=== PATIENT | female | born 1985 | race Caucasian/White ===

== ENCOUNTER 2016-07-24 06:00 | Inpatient (IN) | payer BC ==
[~2016-07-24] VITALS: Ht 167.6 cm; Wt 72.6 kg
[2016-07-24 06:11] VITALS: BP 121/65
--- NOTE | 2016-07-24 06:22 | NUR ---
PT TAKEN TO OF
--- NOTE | 2016-07-24 06:27 | NUR ---
PT BIB FAMILY C/O LOWER ABD PAIN, STARTED LASTNIGHT AROUND 18:00 WITH VOMITING AND DIARRHEA. PT DENIES ANY TRAUMA. SKIN IS INTACT, PALE/COOL/DRY; AAOX4, PERRL, WITH EVEN AND UNSTEADY GAIT-PT NOTED TO HAVE A BENT OVER GAIT S/P SEVERE LOWER ABD PAIN; LUNGS CLEAR BL, BREATHING UNLABORED; HR EVEN AND REGULAR, BL PERIPHERAL PULSES PRESENT; BS ACTIVE X4, TENDERNESS ON PALPATION TO LOW ABD. PT DENIES ANY FEVER, CP, SOB, OR COUGH AT THIS TIME; PT STATES 10/10 PAIN AT THIS TIME; VSS; PATIENT POSITIONED FOR COMFORT; HOB ELEVATED; BEDRAILS UP X2; BED DOWN. ER MD TO CHECO, ALL ORDER EXECUTED
--- NOTE | 2016-07-24 06:28 | NUR ---
Dr. Solis evaluating patient
[2016-07-24] MEDS ORDERED: MORPHINE SULFATE 4 MG/ML SYR IVP ONE ×2 (06:30→08:20)
[2016-07-24] MEDS ORDERED: NACL 0.9% 1,000 ML IV ONE (06:30)
[2016-07-24] MEDS ORDERED: LEVOFLOXACIN 500 MG/D5W PREMIX 100 ML IV ONE (06:30)
[2016-07-24] MEDS ORDERED: ONDANSETRON 4 MG/2 ML VIAL IVP ONE (06:30)
--- NOTE | 2016-07-24 06:40 | NUR ---
PT MOVED TO BED 3
[2016-07-24 06:43] LABS: BASOPHILS # (AUTO) 0.4 K/uL (0.00-0.22); BASOPHILS % (AUTO) 2.2 % (0.0-2.0); EOSINOPHILS # (AUTO) 0.4 K/uL (0-0.4); EOSINOPHILS % (AUTO) 2.3 % (0.0-4.0); HEMATOCRIT 39.3 % (36-48); HEMOGLOBIN 13.2 g/dL (12.0-16.0); LYMPHOCYTES # (AUTO) 1.3 K/uL (2.5-16.5); LYMPHOCYTES % (AUTO) 7.8 % (20.5-51.1); MEAN CORPUSCULAR HEMOGLOBIN 30 pg (27-31); MEAN CORPUSCULAR HGB CONC 34 g/dL (33-37); MEAN CORPUSCULAR VOLUME 88 fL (80-94); MONOCYTES # (AUTO) 0.2 K/uL (0.8-1.0); MONOCYTES % (AUTO) 0.9 % (1.7-9.3); NEUTROPHILS % (AUTO) 86.8 % (42.2-75.2); PLATELET COUNT (AUTO) 264 K/uL (140-450); RED BLOOD CELL COUNT(AUTO) 4.45 MIL/uL (4.20-5.40); RED CELL DISTRIBUTION WIDTH 12.7 % (11.6-13.7)
--- NOTE | 2016-07-24 06:58 | NUR ---
Dr. May evaluating patient at bedside.
[2016-07-24 07:02] LABS: WHITE BLOOD COUNT (AUTO) 17.3 K/uL (4.8-10.8)
--- NOTE | 2016-07-24 07:08 | NUR ---
PT TAKEN TO CT
[2016-07-24 07:12] LABS: ANION GAP 16.3 (8-16); CARBON DIOXIDE 24.5 mmol/L (21-32); POTASSIUM 3.8 mmol/L (3.5-5.1)
[2016-07-24 07:13] LABS: CALCIUM 9.1 mg/dL (8.5-10.1); CREATININE 0.8 mg/dL (0.6-1.3)
[2016-07-24 07:14] LABS: TOTAL PROTEIN, SERUM 8.1 g/dL (6.4-8.2)
--- NOTE | 2016-07-24 07:15 | NUR ---
REPORT GIVEN TO CHRISTOPHER BATES. PT. RESTING IN BED, NO S/SX DISTRESS AT THIS TIME.
[2016-07-24 07:44] LABS: TOTAL BILIRUBIN 0.5 mg/dL (0.0-1.0)
[2016-07-24 07:48] LABS: APPEARANCE,URINE HAZY (CLEAR); BILIRUBIN,URINE NEGATIVE (NEGATIVE); BLOOD, URINE TRACE-I (NEGATIVE); COLOR,URINE YELLOW (YELLOW); LEUKOCYTE ESTERASE ,URINE NEGATIVE (NEGATIVE); NITRITE, URINE NEGATIVE (NEGATIVE); PH,URINE 7.5 (5.0-9.0); PROTEIN,URINE TRACE (NEGATIVE); UGLUCOSE NEGATIVE (NEGATIVE); UROBILINOGEN,URINE 0.2 EU/dL (0.2 - 1)
[2016-07-24 07:56] LABS: WBC,URINE 0-5 /HPF (0-5)
[2016-07-24 07:57] LABS: BACTERIA,URINE FEW /HPF (None Seen); MUCUS,URINE 1+ /LPF (None Seen)
--- NOTE | 2016-07-24 09:05 | NUR ---
RECEIVED REPORT FROM THE ER NURSE. WILL GET ROOM READY AND WILL AWAIT ARRIVAL.
--- NOTE | 2016-07-24 09:10 | NUR ---
Patient will be admitted to care of DR LAM. Admited to TELE. Will go to room 120A. Belongings list completed. Report to CHRISTOPHER BHATT .
--- NOTE | 2016-07-24 09:25 | NUR ---
PT ARRIVED ON UNIT WITH 2 ER NURSES. PT IS ACCOMPANIED BY HER DAUGHTER. PT IS A 29 Y/O WOMEN, C/O ABD PAIN, NAUSEA, VOMITING, DIARRHEA SINCE YESTERDAY. NO MORE NAUSEA, VOMITING, AND DIARRHEA BUT ABD PAIN IS STILL AT 5/10. SKIN IS INTACT. IV ON R AC 18G. PT IS ALERT AND ORIENTED, SPEAKS BENGALI AND UNDERSTANDS LITTLE OF AMERICAN. PT IS AMBULATORY. LBM LAST NIGHT, DIARRHEA. IN ER, CT IS NEGATIVE. V/S WITHIN NORMAL RANGE. MRSA SCREENING DONE. APPLIED BROWN SOCKS. AWAITING ORDERS. PT RESTING IN BED. WITH DAUGHTER AT BEDSIDE. WILL CONTINUE TO MONITOR PT.
[2016-07-24] MEDS ORDERED: ONDANSETRON 4 MG/2 ML VIAL IM/IVP PRN ×2 (09:50→10:25)
[2016-07-24] MEDS ORDERED: DOCUSATE SODIUM 100 MG GELCAP PO PRN ×2 (09:50→10:25)
[2016-07-24] MEDS ORDERED: HYDROcodone/APAP 7.5/325 MG 1 TAB PO PRN (09:50)
[2016-07-24] MEDS ORDERED: NACL 0.9% 1,000 ML IV SCH (09:50)
[2016-07-24] MEDS ORDERED: MORPHINE SULFATE 2 MG/ML SYR IVP PRN (09:50)
[2016-07-24] MEDS ORDERED: ACETAMINOPHEN 325 MG TAB PO PRN (09:50)
[2016-07-24 10:00] VITALS: BP 122/78
[2016-07-24 10:17] LABS: PARTIAL THROMBOPLASTIN TIME 25.8 secs (22-35.6); PROTHROMBIN TIME 9.8 secs (10.8-13.4)
[2016-07-24 10:31] LABS: CHOL/HDL RATIO 2.3 (1-4.5); MAGNESIUM 1.8 mg/dL (1.8-2.4); PHOSPHORUS 2.1 mg/dL (2.5-4.9); THYROID STIMULATING HORMONE 0.7 uIU/mL (0.34-3.76)
[2016-07-24] MEDS: MORPHINE SULFATE 2 MG/ML SYR IVP PRN ×3 (10:56→21:55)
[2016-07-24] MEDS: NACL 0.9% 1,000 ML IV SCH ×2 (10:56→20:25)
--- NOTE | 2016-07-24 11:30 | NUR ---
SPOUSE CAME BY TO SEE PT. PT CLAIMS PAIN IS BETTER BUT NOT GONE. WILL SEE ABOUT ALTERNATING NORCO AND MORPHINE. WILL CONTINUE TO MONITOR PT.
[2016-07-24 12:00] VITALS: BP 129/74
[2016-07-24] MEDS: HYDROcodone/APAP 7.5/325 MG 1 TAB PO PRN ×2 (12:30→17:46)
--- NOTE | 2016-07-24 13:27 | NUR ---
THE WHOLE FAMILY IS SLEEPING. PT AND DAUGHTER IN BED AND SPOUSE IN THE CHAIR. NO SIGNS OF DISTRESS. WILL CONTINUE TO MONITOR PT.
--- NOTE | 2016-07-24 15:05 | NUR ---
ADMINISTERED PAIN MEDS REQUESTED. PAIN 8/10. PT TOLERATED WELL. WILL CONTINUE TO MONITOR PT.
[2016-07-24 16:00] VITALS: BP 110/62
[2016-07-24] MEDS: ACETAMINOPHEN 325 MG TAB PO PRN (16:17)
--- NOTE | 2016-07-24 16:18 | NUR ---
PT HAS A FEVER OF 100.7F TEMPORAL. HAD THE STUDENTS REDO THE TEMP. ORAL WAS 102.7F. ADMINISTERED TYLENOL AND STARTED COOLING MEASURES.
--- NOTE | 2016-07-24 17:49 | NUR ---
DR. CASTILLO CAME AND ASSESSED PT. ADMINISTERED PAIN MED. PT TOLERATED WELL. PER MD, PT HAS SOME SWELLING IN HER CERVIX. DR Kailyn BRONSON WAS CONSULTED.
--- NOTE | 2016-07-24 19:11 | NUR ---
ENDORSED PT TO THE ELECTRICAL APPRENTICE NURSE AT BEDSIDE FOR CONTINUITY OF CARE. PT IS IN STABLE CONDITION.
--- NOTE | 2016-07-24 19:12 | NUR ---
RECEIVED REPORT, ASSUMED CARE. PT AAOX4, RESTING COMFORTABLY IN BED WITH FAMILY AT BEDSIDE. RESPIRATION EVEN AND UNLABORED, NO SOB, NO S/S OF RESPIRATORY DISTRESS. DENIES PAIN AT THIS TIME. IV ACCESS TO RT AC, GAUGE 18, INTACT AND PATENT WITH NO S/S OF INFILTRATION. IVF NS @ 100ML/HR INFUSING WELL. DISCUSSED PLAN OF CARE, ON NPO PER ORDER. EDUCATED RE:SAFETY AND FALL PREVENTION. PT VERBALIZED UNDERSTANDING. CALL LIGHT KEPT WITHIN EASY REACH. WILL CONTINUE TO MONITOR.
[2016-07-24 19:42] LABS: LACTIC ACID 1.8 mmol/L (0.4-2.0)
[2016-07-24 20:00] VITALS: BP 119/66
[2016-07-25] VITALS: BP 104/57
[2016-07-25] MEDS: MORPHINE SULFATE 2 MG/ML SYR IVP PRN ×3 (00:58→12:36)
[2016-07-25] MEDS: HYDROcodone/APAP 7.5/325 MG 1 TAB PO PRN ×2 (02:52→11:44)
[2016-07-25 04:00] VITALS: BP 114/52
[2016-07-25] MEDS ORDERED: LEVOFLOXACIN 500 MG/D5W PREMIX 100 ML IV SCH ×2 (06:00→16:30)
[2016-07-25] MEDS: NACL 0.9% 1,000 ML IV SCH ×2 (06:04→16:22)
[2016-07-25 06:27] LABS: HEMATOCRIT 36.6 % (36-48); HEMOGLOBIN 12.5 g/dL (12.0-16.0); MEAN CORPUSCULAR HEMOGLOBIN 31 pg (27-31); MEAN CORPUSCULAR HGB CONC 34 g/dL (33-37); MEAN CORPUSCULAR VOLUME 91 fL (80-94); PLATELET COUNT (AUTO) 208 K/uL (140-450); RED BLOOD CELL COUNT(AUTO) 4.05 MIL/uL (4.20-5.40); RED CELL DISTRIBUTION WIDTH 12.9 % (11.6-13.7); WHITE BLOOD COUNT (AUTO) 23.1 K/uL (4.8-10.8)
--- NOTE | 2016-07-25 06:27 | NUR ---
PT SITTING UP IN BED, CRYING AND MOANING IN PAIN. PT C/O LOWER ABDOMINAL PAIN 10/15. ENCOURAGED POSITIONING IN BED. INSTRUCTED TO PERFORM DEEP BREATHING EXERCISES. INFORMED DR. BAUER AND DISCUSSED PT'S CONDITION. ORDERED TORADOL 30MG IVP Q6H PRN. NOTED AND CARRIED OUT.
[2016-07-25 06:35] LABS: ANION GAP 12.7 (8-16); CALCIUM 7.9 mg/dL (8.5-10.1); CARBON DIOXIDE 25.5 mmol/L (21-32); CREATININE 0.7 mg/dL (0.6-1.3); POTASSIUM 3.2 mmol/L (3.5-5.1)
[2016-07-25 06:46] LABS: MAGNESIUM 1.7 mg/dL (1.8-2.4); PHOSPHORUS 2.6 mg/dL (2.5-4.9)
--- NOTE | 2016-07-25 07:00 | NUR ---
PT'S BP 88/50 AT THIS TIME, PT STILL CRYING IN PAIN. DR. BRONSON IN AND SAW PATIENT'S CONDITION AND INFORMED THAT CELL STRIPPER FINAL IS UNABLE TO ADMINISTER TORADOL DUE TO LOW BP. STATES, "NO DON'T GIVE IT." ENDORSED TO NEXT SHIFT FOR CONTINUITY OF CARE.
--- NOTE | 2016-07-25 07:01 | NUR ---
PT AWAKE AND ALERT, NO SIGNS OF ACUTE DISTRESS. BOWEL SOUNDS ACTIVE IN ALL 4 QUADRANTS, NO ABDOMINAL DISTENTION. BOWEL AND BLADDER CONTINENCE. SKIN INTACT. AMBULATORY WITH BRP, IV PATENT AND ASYMPTOMATIC. BED IN LOW POSITION WITH BILATERAL HALF SIDE RAILS UP, CALL LIGHT WITHIN REACH. RE-ORIENTED PATIENT TO UNIT AND HOSPITAL, PT VERBALIZED UNDERSTANDING.
[2016-07-25 08:00] VITALS: BP 129/73
[2016-07-25] MEDS: KETOROLAC 30 MG/ML VIAL IVP PRN ×2 (08:06→16:52)
[2016-07-25] MEDS: SODIUM PHOS / POTASSIUM PHOS 1 PKT PDR PO SCH ×3 (08:06→16:51)
[2016-07-25 08:36] LABS: BAND % (MANUAL) 18 % (0-8); LYMPHOCYTES % (MANUAL) 7 % (20-46); MONOCYTES % (MANUAL) 3 % (5-12); NEUTROPHILS % (MANUAL) 72 (43-65)
[2016-07-25 09:35] LABS: T4 (THYROXINE) 9.8 ug/dL (4.5-12.0)
--- NOTE | 2016-07-25 10:00 | NUR ---
PT SEEN BY DR JAUREGUI, NEW ORDERS GIVEN, NOTED, WILL CARRY OUT.
[2016-07-25 12:00] VITALS: BP 117/62
[2016-07-25 12:31] LABS: HEMOGLOBIN A1C 5.6 % (4.8-5.6)
[2016-07-25] MEDS: metroNIDAZOLE 500 MG/NS PREMIX 100 ML IV SCH ×2 (12:36→22:59)
--- NOTE | 2016-07-25 13:40 | NUR ---
PT AWAKE AND ALERT, TAKEN TO RADIOLOGY FOR CT OF ABDOMEN AND PELVIS WITH ORAL AND IV CONTRAST.
--- NOTE | 2016-07-25 14:02 | NUR ---
PATIENT BACK FROM RADIOLOGY, AWAKE AND ALERT, NO SIGNS OF ACUTE DISTRESS. WILL CONTINUE TO MONITOR.
--- NOTE | 2016-07-25 15:18 | NUR ---
CM NOTE INITIAL REVIEW FAXED TO SUMAN MEEKS [phone]
--- NOTE | 2016-07-25 15:38 | NUR ---
RECEIVED CRITICAL CT ABD AND PELVIC RESULT FROM [facility]NER FREY AT [facility] AND REPORTED TO RESIDENT. PAGED DR JAUREGUI WELL.
--- NOTE | 2016-07-25 15:40 | NUR ---
PATIENT RHYTHM IS TACHYCARDIA IN 140'S, DR VALENZUELA AWARE.
[2016-07-25 16:00] VITALS: BP 98/61
--- NOTE | 2016-07-25 16:15 | NUR ---
RECEIVED ORDERS FOR EXPLORATORY LAPAROTOMY TO BE PERFORMED BY DR JAUREGUI TODAY AT 1730 AND TO OBTAIN CONSENT.
[2016-07-25] MEDS ORDERED: POTASSIUM CHLORIDE 40 MEQ, LIDOCAINE 1% 25 MG in NACL 0.9% 250 ML IV SCH (16:30)
[2016-07-25] MEDS ORDERED: MAG SULF 2000 MG/WATER PREMIX 50 ML IV SCH (16:30)
--- NOTE | 2016-07-25 17:24 | NUR ---
PATIENT AWAKE AND ALERT, TAKEN TO OR FOR EXPLORATORY LAPAROTOMY.
[2016-07-25] MEDS ORDERED: HYDROmorphone PFS 2 MG/ML SYR ONE ×2 (17:48→19:27)
[2016-07-25] MEDS ORDERED: fentaNYL 0.05 MG/ML VIAL ONE (17:48)
[2016-07-25] MEDS ORDERED: GLYCOPYRROLATE 0.2 MG/ML VIAL ONE (18:00)
[2016-07-25] MEDS ORDERED: PHENYLEPHRINE 10 MG/ML VIAL ONE (18:00)
[2016-07-25] MEDS ORDERED: PROPOFOL 200 MG/20 ML VIAL IV ONE (18:00)
[2016-07-25] MEDS ORDERED: KETOROLAC 30 MG/ML VIAL ONE (18:00)
[2016-07-25] MEDS ORDERED: ONDANSETRON 4 MG/2 ML VIAL ONE (18:00)
[2016-07-25] MEDS ORDERED: DEXAMETHASONE 4 MG/ML VIAL ONE (18:00)
[2016-07-25] MEDS ORDERED: SUCCINYLCHOLINE CHLORIDE 200 MG/10 ML VIAL IVP ONE ×2 (18:00)
[2016-07-25] MEDS ORDERED: ONDANSETRON 4 MG/2 ML VIAL IVP PRN (19:20)
--- NOTE | 2016-07-25 19:20 | NUR ---
PT AWAKE AND ALERT, NO SIGNS OF ACUTE DISTRESS. ENDORSED CARE TO SENIOR COBOL DEVELOPER NURSE FOR CONTINUITY OF CARE. Addendum: 07/26/16 at 1018 by Sarah Desir RN PT OFF UNIT FOR SURGERY, ENDORSED CARE TO SENIOR COBOL DEVELOPER NURSE FOR CONTINUITY OF CARE.
[2016-07-25] MEDS: HYDROmorphone 1 MG/ML AMP IVP PRN ×3 (19:25→20:26)
--- NOTE | 2016-07-25 19:30 | NUR ---
OFF THE UNIT RIGHT NOW WENT TO ODonFOR EXPLORE LAP.
[2016-07-25 20:00] VITALS: BP 127/72
--- NOTE | 2016-07-25 20:00 | NUR ---
RECEIVED PT FROM O.R. S/P EXPLORE LAPAROTOMY OPEN APPENDECTOMY ACCOMPANIED BY TAMARA WHITE VIA [facility]. PT IS ALERT, AWAKE ORIENTED X4. INITIAL ASSESSMENT DONE. NO S/S OF RESPIRATORY DISTRESS OR SOB NOTED. C/O ABDOMINAL PAIN SCALING 6/10. WILL ADMINISTER PRN MEDICATION FOR ABDOMINAL PAIN ORDERED. DRESSING IS INTACT ON THE ABDOMEN WITH NO S/S OF DRAINAGE. PLAN OF CARE REVIEWED TO PT AND AND VERBALIZED UNDERSTANDING. CALL LIGHT WITHIN REACH. WILL CONTINUE TO MONITOR.
[2016-07-25] MEDS: MORPHINE SULFATE 4 MG/ML SYR IVP PRN (21:11)
[2016-07-26] VITALS: BP 122/74
[2016-07-26] MEDS: HYDROmorphone 1 MG/ML AMP IVP PRN ×2 (00:04→06:57)
[2016-07-26 01:16] LABS: AMPHETAMINE, URINE NEG. ng/ml (NEG <=1000); BARBITURATE, URINE NEG. ng/ml (NEG <=200); BENZODIAZEPINE, URINE NEG. ng/mL (NEG <=200); CANNABINOID, URINE NEG. ng/mL (NEG <=50); COCAINE, URINE NEG. ng/mL (NEG <=300); OPIATE, URINE POS. ng/mL (NEG <=2000); PHENCYCLIDINE SCREEN,URINE NEG. ng/mL (NEG <=25)
--- NOTE | 2016-07-26 01:25 | NUR ---
PT IN THE ROOM WITH HER AT BED SIDE, UNABLE TO PERFORM IS DUE TO PAIN AND NAUSEA.
[2016-07-26] MEDS: KETOROLAC 30 MG/ML VIAL IVP PRN ×2 (02:16→12:08)
[2016-07-26] MEDS: NACL 0.9% 1,000 ML IV SCH ×3 (02:25→18:34)
[2016-07-26] MEDS: MORPHINE SULFATE 4 MG/ML SYR IVP PRN ×5 (03:31→23:22)
[2016-07-26 04:00] VITALS: BP 108/71
[2016-07-26] MEDS: metroNIDAZOLE 500 MG/NS PREMIX 100 ML IV SCH ×3 (04:20→20:46)
--- NOTE | 2016-07-26 05:15 | NUR ---
AM CARE RENDERED. BED LINEN CHANGED. INSTRUCTED PT TO REPOSITION. KEPT CLEAN AND DRY. CALL LIGHT WITHIN REACH. WILL CONTINUE TO MONITOR.
[2016-07-26 06:07] LABS: HEMATOCRIT 33.7 % (36-48); HEMOGLOBIN 11.2 g/dL (12.0-16.0); MEAN CORPUSCULAR HEMOGLOBIN 30 pg (27-31); MEAN CORPUSCULAR HGB CONC 33 g/dL (33-37); MEAN CORPUSCULAR VOLUME 90 fL (80-94); PLATELET COUNT (AUTO) 177 K/uL (140-450); RED BLOOD CELL COUNT(AUTO) 3.75 MIL/uL (4.20-5.40); WHITE BLOOD COUNT (AUTO) 11.3 K/uL (4.8-10.8)
[2016-07-26 06:19] LABS: CALCIUM 7.7 mg/dL (8.5-10.1); CARBON DIOXIDE 28.7 mmol/L (21-32); CREATININE 0.6 mg/dL (0.6-1.3); POTASSIUM 3.7 mmol/L (3.5-5.1)
[2016-07-26 06:27] LABS: MAGNESIUM 1.9 mg/dL (1.8-2.4)
--- NOTE | 2016-07-26 07:26 | NUR ---
PT HAS NO S/S OF ANY DISCOMFORT. PLAN OF CARE ENDORSE TO SELWYN WIHTE AT BEDSIDE FOR CONTINUITY OF CARE.
--- NOTE | 2016-07-26 07:27 | NUR ---
PATIENT AWAKE AND ALERT, NO SIGNS OF ACUTE DISTRESS. BOWEL SOUNDS ACTIVE IN ALL 4 QUADRANTS WITH SLIGHT ABDOMINAL DISTENTION AND CLEAN DRESSING COVERING SURGICAL INCISION ON ANTERIOR MID ABDOMEN. NO DRAINAGE ON DRESSING. BOWEL AND BLADDER CONTINENCE WITH MENDOZA IN PLACE FROM EXPLORATORY LAPAROTOMY ON 07/25/16, URINE DARK LAURA IN COLOR. IV PATENT, INFUSING AND ASYMPTOMATIC. NO COMPLAINT OF PAIN AT THIS TIME. RE-ORIENTED PATIENT TO UNIT AND HOSPITAL. BED IN LOW POSITION WITH BILATERAL HALF SIDE RAILS UP, CALL LIGHT WITHIN REACH.
[2016-07-26 08:00] VITALS: BP 96/58
[2016-07-26] MEDS: SIMETHICONE 80 MG TAB.CHEW PO SCH ×3 (08:53→16:01)
[2016-07-26] MEDS: SODIUM PHOS / POTASSIUM PHOS 1 PKT PDR PO SCH ×3 (08:53→16:01)
[2016-07-26] MEDS: LEVOFLOXACIN 750 MG/D5W PREMIX 150 ML IV SCH (09:12)
[2016-07-26] MEDS: HYDROcodone/APAP 7.5/325 MG 1 TAB PO PRN ×3 (09:15→18:34)
[2016-07-26 10:08] LABS: BAND % (MANUAL) 34 % (0-8); LYMPHOCYTES % (MANUAL) 9 % (20-46); MONOCYTES % (MANUAL) 3 % (5-12); NEUTROPHILS % (MANUAL) 54 (43-65); PLATELET ESTIMATE ADEQUATE
--- NOTE | 2016-07-26 10:56 | NUR ---
CM NOTE CONCURRENT REVIEW FAXED TO SUMAN MEEKS [phone] REF# [id number]
[2016-07-26 12:00] VITALS: BP 109/51
--- NOTE | 2016-07-26 12:15 | NUR ---
DEMONSTRATED AND INSTRUCTED PATIENT ON PROPER USE OF INCENTIVE SPIROMETER. PT VERBALIZED UNDERSTANDING AND ABLE TO DEMONSTRATE PROPER USE. INFORMED PATIENT TO USE 10 TIMES EVERY HOUR.
--- NOTE | 2016-07-26 12:48 | NUR ---
PT SEEN BY DR JAUREGUI. PER DR JAUREGUI PT NEEDS TO CONTINUE INCENTIVE SPIROMETER AND WALK AROUND. ALSO RECEIVED ORDER FROM HIM TO D/C REJI. NOTED, WILL CARRY OUT.
--- NOTE | 2016-07-26 13:37 | NUR ---
D/C'D MENDOZA, 450ML OUTPUT OF URINE.
--- NOTE | 2016-07-26 14:34 | NUR ---
PATIENT JUST FINISHED WALKING APPROXIMATELY 20 STEPS. PAIN LEVEL [id number]/10, MEDICATED WITH NORCO. WILL CONTINUE TO MONITOR.
[2016-07-26 16:00] VITALS: BP 100/59
[2016-07-26] MEDS ORDERED: LEVOFLOXACIN 500 MG/D5W PREMIX 100 ML IV SCH (16:00)
--- NOTE | 2016-07-26 19:20 | NUR ---
PT AWAKE AND ALERT, NO SIGNS OF ACUTE DISTRESS. ENDORSED TO FISH HOUSE WORKER NURSE FOR CONTINUITY OF CARE.
--- NOTE | 2016-07-26 19:30 | NUR ---
RECEIVED REPORT FROM SELWYN WHITE AT BEDSIDE. PT IS ALERT, AWAKE ORIENTED X4. INITIAL ASSESSMENT DONE. NO S/S OF RESPIRATORY DISTRESS OR SOB NOTED. C/O ABDOMINAL PAIN SCALING 9/10. WILL GIVE PRN MEDICATION FOR ABDOMINAL PAIN ORDERED. PLAN OF CARE REVIEWED TO PT AND FAMILY AT BEDSIDE AND VERBALIZED UNDERSTANDING. CALL LIGHT WITHIN REACH. WILL CONTINUE TO MONITOR.
[2016-07-26 20:00] VITALS: BP 110/69
[2016-07-27] VITALS: BP 108/72
--- NOTE | 2016-07-27 00:20 | NUR ---
PT IS SLEEPING RIGHT NOW BUT EASILY AROUSABLE. NO S/S OF ANY DISCOMFORT AT THIS TIME. ALL NEEDS ARE ATTENDED. CALL LIGHT WITHIN REACH. WILL CONTINUE TO MONITOR.
[2016-07-27] MEDS: HYDROcodone/APAP 7.5/325 MG 1 TAB PO PRN ×2 (02:02→08:28)
[2016-07-27 04:00] VITALS: BP 108/61
[2016-07-27] MEDS: metroNIDAZOLE 500 MG/NS PREMIX 100 ML IV SCH ×3 (04:20→20:26)
[2016-07-27] MEDS: MORPHINE SULFATE 4 MG/ML SYR IVP PRN ×5 (04:49→20:25)
--- NOTE | 2016-07-27 05:45 | NUR ---
AM CARE RENDERED. BED LINEN CHANGED. INSTRUCTED PT TO REPOSITION. KEPT CLEAN AND DRY. CALL LIGHT WITHIN REACH. WILL CONTINUE TO MONITOR.
[2016-07-27 06:28] LABS: HEMATOCRIT 34.1 % (36-48); HEMOGLOBIN 11.1 g/dL (12.0-16.0); MEAN CORPUSCULAR HEMOGLOBIN 30 pg (27-31); MEAN CORPUSCULAR HGB CONC 33 g/dL (33-37); MEAN CORPUSCULAR VOLUME 91 fL (80-94); PLATELET COUNT (AUTO) 196 K/uL (140-450); RED BLOOD CELL COUNT(AUTO) 3.76 MIL/uL (4.20-5.40); RED CELL DISTRIBUTION WIDTH 12.9 % (11.6-13.7); WHITE BLOOD COUNT (AUTO) 12.1 K/uL (4.8-10.8)
[2016-07-27 06:52] LABS: ALBUMIN 2.1 g/dL (3.4-5.0); CALCIUM 7.7 mg/dL (8.5-10.1); CARBON DIOXIDE 27.1 mmol/L (21-32); CREATININE 0.5 mg/dL (0.6-1.3); PHOSPHORUS 1.9 mg/dL (2.5-4.9); POTASSIUM 3.1 mmol/L (3.5-5.1); TOTAL BILIRUBIN 0.3 mg/dL (0.0-1.0); TOTAL PROTEIN, SERUM 5.9 g/dL (6.4-8.2)
[2016-07-27 07:22] LABS: BAND % (MANUAL) 12 % (0-8); LYMPHOCYTES % (MANUAL) 11 % (20-46); MONOCYTES % (MANUAL) 6 % (5-12); NEUTROPHILS % (MANUAL) 71 (43-65)
--- NOTE | 2016-07-27 07:23 | NUR ---
PT HAS NO S/S OF ANY DISCOMFORT. PLAN OF CARE ENDORSE TO SELWYN WHITE AT BEDSIDE FOR CONTINUITY OF CARE.
--- NOTE | 2016-07-27 07:24 | NUR ---
PATIENT AWAKE AND ALERT, NO SIGNS OF ACUTE DISTRESS. BOWEL SOUNDS ACTIVE IN ALL4 QUADRANTS. NO COMPLAINT OF NAUSEA AND NO VOMITING. CONTINENT TO BOWEL AND BLADDER. AMBULATORY WITH BRP. SKIN INTACT. RE-ORIENTED PATIENT TO UNIT AND HOSPITAL. PT VERBALIZED UNDERSTANDING. BED IN LOW POSITION WITH BILATERAL HALF SIDE RAILS UP, CALL LIGHT WITHIN REACH.
[2016-07-27] MEDS ORDERED: FERRIC GLUCONATE 125 MG in NACL 0.9% 100 ML IV SCH (07:35)
[2016-07-27 08:00] VITALS: BP 123/74
[2016-07-27] MEDS ORDERED: POTASSIUM PHOSPHATE 15 MM in NACL 0.9% 250 ML IV SCH (08:00)
[2016-07-27] MEDS: SIMETHICONE 80 MG TAB.CHEW PO SCH ×3 (08:27→16:46)
[2016-07-27] MEDS: FERRIC GLUCONATE 125 MG in NACL 0.9% 100 ML IV SCH (08:27)
[2016-07-27] MEDS: SODIUM PHOS / POTASSIUM PHOS 1 PKT PDR PO SCH ×3 (08:28→16:46)
[2016-07-27] MEDS: NACL 0.9% 1,000 ML IV SCH (08:48)
[2016-07-27 09:57] LABS: FOLIC ACID 6.5 ng/mL (>3.0)
--- NOTE | 2016-07-27 11:03 | NUR ---
CM NOTE CONCURRENT REVIEW FAXED TO SUMAN MEEKS [phone] REF# [id number]
[2016-07-27] MEDS: LEVOFLOXACIN 750 MG/D5W PREMIX 150 ML IV SCH (11:47)
--- NOTE | 2016-07-27 13:10 | NUR ---
PT SEEN BY DR JAUREGUI, PER DR JAUREGUI ENCOURAGE INCENTIVE SPIROMETER AND KEEP INCISION FLIGHT TEST MECHANIC. NOTED, WILL CARRY OUT.
[2016-07-27 16:00] VITALS: BP 134/85
[2016-07-27] MEDS ORDERED: POTASSIUM CHLORIDE 40 MEQ, LIDOCAINE 1% 25 MG in NACL 0.9% 250 ML IV SCH (16:00)
[2016-07-27] MEDS: FERROUS SULFATE 325 MG TABEC PO SCH (16:46)
[2016-07-27] MEDS: HYDROcodone/APAP 10/325 MG 1 TAB TAB PO PRN ×2 (18:24→22:39)
--- NOTE | 2016-07-27 19:30 | NUR ---
RECEIVED FROM AM RN IN BED WITH VISITORS AROUND. S/P EXPLORE LAP 07/25/16 . OPEN TO AIR WITH RICHARDSON INTACT. NO SOB . DENIES PAIN AT THIS TIME. NO IVF SITE AT THIS TIME. INFILTRATED TO RAC. WILL RE -INSERT. CALL LIGHT WITH IN REACH AND CARE PLANS FOR THE NIGHT EXPLAINED.
--- NOTE | 2016-07-27 19:40 | NUR ---
PATIENT AWAKE AND ALERT, NO SIGNS OF ACUTE DISTRESS. ENDORSED TO E COMMERCE PROJECT MANAGER NURSE FOR CONTINUITY OF CARE.
--- NOTE | 2016-07-27 21:00 | NUR ---
NEW IVF LINE INSERTED TO RIGHT FOREARM#20 BY CHARGE NURSE. GOOD BLOOD RETURN . TOLERATED WELL. OLD IVF SITE TO RAC DISCONTINUED WITH TIP INTACT. TOLERATED WELL. SPOUSE AT BEDSIDE. NO COMPLAINTS DONE.
--- NOTE | 2016-07-27 22:09 | NUR ---
SLEEPING WELL. NO SOB. NO RESTLESSNESS NOTED.
--- NOTE | 2016-07-27 22:42 | NUR ---
PT. AWAKE AND AMBULATED TO RESTROOM LOCATED INSIDE ROOM. STATED"DOLOR" REQUESSTED FORBREAK THROUGH PAIN RELIEVER NORCO TAB. MEDICATED REQUESTED.
--- NOTE | 2016-07-28 | NUR ---
AWAKE AND WATCHING TV. ABLE TO VERBALIZE NEEDS WELL. TURNS SELF. ENCOURAGED TO GO TO SLEEP. CALL LIGHT WITH IN REACH.
[2016-07-28 01:39] VITALS: BP 112/69
[2016-07-28] MEDS: MORPHINE SULFATE 4 MG/ML SYR IVP PRN ×4 (03:11→20:57)
--- NOTE | 2016-07-28 04:00 | NUR ---
SLEEPING AT THIS TIME. NO SOB. CALL LIGHT WITH IN REACH.
[2016-07-28] MEDS: NACL 0.9% 1,000 ML IV SCH ×2 (04:48→20:48)
[2016-07-28 05:59] LABS: HEMATOCRIT 32.8 % (36-48); MEAN CORPUSCULAR HEMOGLOBIN 30 pg (27-31); MEAN CORPUSCULAR HGB CONC 34 g/dL (33-37); MEAN CORPUSCULAR VOLUME 89 fL (80-94); PLATELET COUNT (AUTO) 216 K/uL (140-450); RED BLOOD CELL COUNT(AUTO) 3.68 MIL/uL (4.20-5.40); RED CELL DISTRIBUTION WIDTH 13.6 % (11.6-13.7)
[2016-07-28] MEDS: metroNIDAZOLE 500 MG/NS PREMIX 100 ML IV SCH ×3 (06:11→20:43)
[2016-07-28 06:31] LABS: ANION GAP 11.6 (8-16); CARBON DIOXIDE 26.9 mmol/L (21-32); CREATININE 0.5 mg/dL (0.6-1.3); POTASSIUM 3.5 mmol/L (3.5-5.1)
[2016-07-28 06:36] LABS: MAGNESIUM 1.8 mg/dL (1.8-2.4); PHOSPHORUS 3.7 mg/dL (2.5-4.9)
[2016-07-28 06:54] LABS: BAND % (MANUAL) 4 % (0-8); LYMPHOCYTES % (MANUAL) 10 % (20-46); MONOCYTES % (MANUAL) 4 % (5-12); NEUTROPHILS % (MANUAL) 82 (43-65)
--- NOTE | 2016-07-28 07:43 | NUR ---
SLEPT WELL . MEDICATED WITH PAIN RELIEVER REQUESTED PRN. ABLE TO VERBALIZE NEEDS WELL. S/P EXPLORE LAP SITE INTACT AND NO BLEEDING.
--- NOTE | 2016-07-28 07:45 | NUR ---
RECEIVED REPORT FROM CHRISTOPHER LAM. PT IS RESTING IN BED, A/OX4, AMBULATORY, PT HAS IV ON THE RT FA, PATENT, INTACT, INFUSING WELL, PT HAS VERTICAL ABDOMINAL INCISION WITH RICHARDSON, NO S/S OF RESPIRATORY DISTRESS OR DISCOMFORT NOTED, SAFETY/FALL PRECAUTIONS ARE IN PLACE, IS AT BEDSIDE, CALL LIGHT IS WITHIN REACH, WILL CONTINUE TO MONITOR.
[2016-07-28 08:00] VITALS: BP 126/69
--- NOTE | 2016-07-28 08:12 | NUR ---
FAXED CONCURRENT REVIEW TO SUMAN MEEKS [phone] PHONE [phone]
[2016-07-28] MEDS: ASCORBIC ACID 500 MG TAB PO SCH (08:36)
[2016-07-28] MEDS: SIMETHICONE 80 MG TAB.CHEW PO SCH ×3 (08:36→16:14)
[2016-07-28] MEDS: FERROUS SULFATE 325 MG TABEC PO SCH ×2 (08:36→16:14)
[2016-07-28] MEDS: FERRIC GLUCONATE 125 MG in NACL 0.9% 100 ML IV SCH (08:37)
[2016-07-28] MEDS: SODIUM PHOS / POTASSIUM PHOS 1 PKT PDR PO SCH ×3 (08:37→16:15)
[2016-07-28] MEDS: HYDROcodone/APAP 10/325 MG 1 TAB TAB PO PRN ×2 (08:44→16:13)
[2016-07-28] MEDS: DOCUSATE SODIUM 100 MG GELCAP PO PRN ×2 (08:44→16:13)
[2016-07-28] MEDS: KETOROLAC 30 MG/ML VIAL IVP PRN ×2 (10:17→18:29)
[2016-07-28] MEDS: LEVOFLOXACIN 750 MG/D5W PREMIX 150 ML IV SCH (10:18)
[2016-07-28] MEDS: METOCLOPRAMIDE 10 MG TAB PO SCH ×2 (11:30→16:14)
[2016-07-28 16:00] VITALS: BP 107/56
--- NOTE | 2016-07-28 19:30 | NUR ---
ENDORSED PT TO CHRISTOPHER LAM. FOR CONTINUITY OF CARE, PT STABLE AT THIS TIME, FAMILY IS AT BEDSIDE.
--- NOTE | 2016-07-28 19:35 | NUR ---
RECEIVED FROM AM RN IN BED AWAKE AND ALERT. ABLE TO VERBALIZE NEEDS WELL./ SPOUSE AT BEDSIDE . NO COMPLAINTS DONE AT THIS TIME. DENIES PAIN AT THIS TIME. NO BLEEDING NOTED TO S/P EXPLORE LAP SITE. OPEN TO AIR. CALL LIGHT WITH IN REACH AND CARE PLANS FOR THE NIGHT DISCUSSED WITH THEM.
--- NOTE | 2016-07-28 23:55 | NUR ---
PT'S WANTED TO STAY W/PT.I TALKED WITH HIM AND EXPLAINED THAT BECAUSE WE HAVE ANOTHER FEMALE PT IN THE ROOM YOU CAN NOT STAY.BUT HE DIDN'T ACCEPT TO GO.NOTIFY PAPER AND PRINTS RESTORER(MARIZOL WHITE) HE CAME AND TALKED TO PT TOO.BUT HE REFUSED TO GO.SO PAPER AND PRINTS RESTORER TALKED TO OTHER PT IN [address] AND SHE SAID IT IS OK TO HER STAY.
[2016-07-29] VITALS: BP 110/72
[2016-07-29] MEDS: MORPHINE SULFATE 4 MG/ML SYR IVP PRN ×7 (00:42→23:55)
--- NOTE | 2016-07-29 03:04 | NUR ---
Patient's Plan of Care was discussed and reviewed with COMMANDER INTERNAL AFFAIRS: BRIGITTE LAWRENCE
--- NOTE | 2016-07-29 03:04 | NUR ---
PATIENT RECEIVED FROM RN CAROLE PATIENT IS CURRENTLY RESTING IN BED RICHARDSON TO MID ABDOMEN KELY DRY AND INTACT.IVF INFUSING WELL.NEEDS MET WILL CONTINUE TO MONITOR.CALL LIGHT WITHIN REACH.
[2016-07-29] MEDS: metroNIDAZOLE 500 MG/NS PREMIX 100 ML IV SCH ×3 (04:16→20:43)
--- NOTE | 2016-07-29 06:32 | NUR ---
PATIENT IS SLEEPING IN BE AWAKENS ON AN OFF SIGNIFICANT OTHER AT BEDSIDE WITH THE PATIENT.VERY INVOLVED WITH HIS 'S CARE.NEEDS MET WILL CONTINUE TO MONITOR.
[2016-07-29] MEDS: METOCLOPRAMIDE 10 MG TAB PO SCH ×3 (06:49→15:30)
--- NOTE | 2016-07-29 07:01 | NUR ---
PATIENT STABLE RESTING IN BED NEEDS MET WILL CONTINUE TO MONITOR.
[2016-07-29 07:02] LABS: HEMATOCRIT 32.5 % (36-48); HEMOGLOBIN 10.9 g/dL (12.0-16.0); MEAN CORPUSCULAR HEMOGLOBIN 30 pg (27-31); MEAN CORPUSCULAR HGB CONC 33 g/dL (33-37); MEAN CORPUSCULAR VOLUME 89 fL (80-94); PLATELET COUNT (AUTO) 235 K/uL (140-450); RED BLOOD CELL COUNT(AUTO) 3.66 MIL/uL (4.20-5.40); RED CELL DISTRIBUTION WIDTH 13.3 % (11.6-13.7); WHITE BLOOD COUNT (AUTO) 11.1 K/uL (4.8-10.8)
--- NOTE | 2016-07-29 07:15 | NUR ---
RECEIVED REPORT FROM NIGHT NURSE. PT IS AAOX4 UKRAINIAN SPEAKING, ON ROOM AIR, IV TO RIGHT WRIST 20G INFUSING WELL, ABD SURGICAL INCISION WITH 23 RICHARDSON PUBLIC WORKS DIRECTOR . INITIAL ASSESSMENT COMPLETED, REVIEW PLAN OF CARE WITH PT,PT VERBALIZED UNDERSTANDING. ALL SAFETY PRECAUTIONS MET, AT BEDSIDE. WILL CONTINUE TO MONITOR.
[2016-07-29 07:25] LABS: ANION GAP 14.1 (8-16); CALCIUM 7.6 mg/dL (8.5-10.1); CARBON DIOXIDE 25.4 mmol/L (21-32); CREATININE 0.5 mg/dL (0.6-1.3); POTASSIUM 3.5 mmol/L (3.5-5.1)
[2016-07-29 07:29] LABS: MAGNESIUM 1.8 mg/dL (1.8-2.4); PHOSPHORUS 4.2 mg/dL (2.5-4.9)
--- NOTE | 2016-07-29 07:35 | NUR ---
PATIENT ENDORSED TO CHRISTOPHER MOCTEZUMA AT BEDSIDE RIGHT THEN PATIENT STATES,"SHE GOT UP TO GO TO THE BATHROOM AND HER INCISION STARTED BLEEDING."I CHECKED HER MIDLINE INCISION AND IT LOOKS LIKE THE DRY SCAB CAME OFF AND BLEED A LITTLE BUT AT THIS TIME LOWER PART OF INCISION IS ONLY MOIST NO ACTIVE BLEEDING NOTED I ALSO TOLD THE PATIENT TO NOT TOUCH THE INCISION AND CONTINUE TO KEEP IT OPEN TO AIR.CHRISTOPHER MOCTEZUMA AWARE SHE WILL CONTINUE TO MONITOR. CHRISTOPHER KEITA IS ALSO AWARE PATIENT WANTS PAIN MEDICATION.
[2016-07-29 07:46] LABS: BAND % (MANUAL) 4 % (0-8); EOSINOPHILS % (MANUAL) 1 % (0-4); LYMPHOCYTES % (MANUAL) 9 % (20-46); MONOCYTES % (MANUAL) 8 % (5-12); NEUTROPHILS % (MANUAL) 78 (43-65)
[2016-07-29 08:00] VITALS: BP 125/79
[2016-07-29] MEDS: SODIUM PHOS / POTASSIUM PHOS 1 PKT PDR PO SCH ×3 (08:38→16:39)
[2016-07-29] MEDS: FERROUS SULFATE 325 MG TABEC PO SCH ×2 (08:38→16:39)
[2016-07-29] MEDS: LEVOFLOXACIN 750 MG/D5W PREMIX 150 ML IV SCH (08:38)
[2016-07-29] MEDS: FERRIC GLUCONATE 125 MG in NACL 0.9% 100 ML IV SCH (08:39)
[2016-07-29] MEDS: SIMETHICONE 80 MG TAB.CHEW PO SCH ×3 (08:39→16:39)
[2016-07-29] MEDS: ASCORBIC ACID 500 MG TAB PO SCH (08:50)
--- NOTE | 2016-07-29 08:53 | NUR ---
DUE MEDICATIONS GIVEN, PT C/O OF ABD PAIN MEDICATED PER MD ORDERS. ALL NEEDS MET. WILL CONTINUE TO MONITOR.
[2016-07-29] MEDS: HYDROcodone/APAP 10/325 MG 1 TAB TAB PO PRN ×3 (09:48→22:05)
--- NOTE | 2016-07-29 11:31 | NUR ---
DUE MEDICATIONS GIVEN, PT TOLERATED WELL C/O OF ABD PAIN 10/10, MEDICATED PER MD ORDERS. ALL NEEDS MET. CALL LIGHT WITHIN REACH. WILL CONTINUE TO MONITOR.
--- NOTE | 2016-07-29 11:53 | NUR ---
ENCOURAGE PATIENT TO WALK AROUND UNIT.
--- NOTE | 2016-07-29 12:22 | NUR ---
PT CURRENTLY WALKING AROUND UNIT WITH FAMILY, NO S/S OF DISTRESS NOTED.
--- NOTE | 2016-07-29 13:22 | NUR ---
PROVIDED PT WITH ABD BINDER, PT STATES SHE FEEL MORE RELIEF =. FAMILY AT BEDSIDE. WILL CONTINUE TO MONITOR.
--- NOTE | 2016-07-29 15:48 | NUR ---
07/29/16 RD INITIAL ASSESSMENT COMPLETED PLEASE REFER TO NUTRITION ASSESSMENT UNDER CARE ACTIVITY FOR ESTIMATED NUTRITIONAL NEEDS. RD RECOMMENDATIONS: 1.CONTINUE FULL LIQUID DIET MEDICALLY APPROPRIATE. 2. IF/WHEN PT IS MEDICALLY STABLE TO ADVANCE DIET, CONSIDER REGULAR DIET. --IF PT STILL WITH POOR PO INTAKE, CONSIDER ADDING BOOST TID WITH MEALS FOR ENERGY REPLETION. 3. RD WILL F/U 2-3 DAYS; HIGH RISK. KAZ GALLEGOS, RD
[2016-07-29 16:00] VITALS: BP 123/80
--- NOTE | 2016-07-29 16:40 | NUR ---
DUE MEDICATIONS GIVEN, PT TOLERATED WELL, ALL NEEDS MET. WILL CONTINUE TO MONITOR.
--- NOTE | 2016-07-29 19:05 | NUR ---
ENDORSED PLAN OF CARE TO NIGHT NURSE. PT IN STABLE CONDITION.
--- NOTE | 2016-07-29 19:10 | NUR ---
PATIENT CURRENTLY SITTING IN A CHAIR WITH HER SIGNIFICANT OTHER.I EDUCATED THE PATIENT ON THE IMPORTANCE OF AMBULATION AND AMBULATING.I TOLD THE PATIENT TO TRY TO AMBULATE IN THE HALLWAY ONLY MUCH SHE CAN TOLERATE HER IS VERY HELPFUL AND INVOLVED AND OFFERED TO ASSIST HER TO WALK.
--- NOTE | 2016-07-29 19:20 | NUR ---
PATIENT SEEN AMBULATING AROUND THE NURSES STATION WITH TOLERATING ACTIVITY WELL.
--- NOTE | 2016-07-29 19:35 | NUR ---
PATIENT IS CURRENTLY BACK IN HER ROOM SITTING AT THE EDGE OF THE BED.I EDUCATED THE PATIENT ALSO ON THE IMPORTANCE OF USING THE INCENTIVE SPIROMETER.I ASKED THE PATIENT IF SHE HAS BEEN DOING HER BREATHING EXERCISES PATIENT STATES,"YES,I HAVE." I TOLD THE PATIENT TO CONTINUE TO USE IT ITS GOOD EXERCISE FOR HER LUNGS.PATIENT VERBALIZES UNDERSTANDING BUT NEEDS MOTIVATION AND CONSTANT REENFORCEMENT AND TEACHING.
[2016-07-29 20:00] VITALS: BP 120/77
--- NOTE | 2016-07-29 20:00 | NUR ---
Patient's Plan of Care was discussed and reviewed with SANG: MELINDA
--- NOTE | 2016-07-29 20:10 | NUR ---
PATIENT GOWN WAS CHANGED PATIENT STATES,"I HAVE URINE ACCIDENTS I TRY TO WALK TO THE BATHROOM BUT WHEN I GET UP OUT OF BED I DRIBBLE AND THAT'S WHY I HAVE THE BEDPAN." I TOLD THE PATIENT TO CALL FOR ASSISTANCE WHEN SHE NEEDS.I NOTICED THAT PATIENT DOESN'T USE THE CALL LIGHT PATIENT WAITS FOR STAFF TO GO IN THE ROOM SO SHE CAN SAY WHAT SHE NEEDS HER AT BEDSIDE ALSO IS NOT USING THE CALL LIGHT.I EDUCATED THEM ON THE IMPORTANCE OF USING THE CALL LIGHT WHEN THEY NEED ASSISTANCE AND I SHOWED THEM HOW TO USE IT AND REENFORCEMENT DONE TO USE IT.PATIENTS IS ALSO AWARE THAT HE CAN CALL MY BLUE PHONE I GAVE THE EXTENSION THEY BOTH VERBALIZE UNDERSTANDING.
[2016-07-29] MEDS: DOCUSATE SODIUM 100 MG GELCAP PO PRN (20:35)
--- NOTE | 2016-07-29 20:35 | NUR ---
I ASKED THE PATIENT EARLIER WHEN WAS THE LAST TIME SHE HAD A BOWEL MOVEMENT PATIENT SAID,"SINCE 07/24/16 WAS THE LAST BOWEL MOVEMENT." I TOLD THE PATIENT THAT I WILL GIVE HER A STOOL SOFTENER. SAID,"WHEN DOCTOR CAME TO SEE THE PATIENT THEY TOLD HIM AND MD SAID HE WILL ORDER SOMETHING TO HELP HER POOP.I GAVE THE PATIENT COLACE FOR NOW AND I TOLD THE PATIENT TO CONTINUE TO DRINK WATER AND AMBULATE.PATIENT VERBALIZES UNDERSTANDING.
[2016-07-29] MEDS ORDERED: MAGNESIUM HYDROXIDE 2400 MG/30 ML UDC PO SCH (20:40)
[2016-07-29] MEDS: NACL 0.9% 1,000 ML IV SCH (20:43)
--- NOTE | 2016-07-29 22:00 | NUR ---
PATIENT IS SITTING AT THE EDGE OF THE BED AND SHE IS COMPLAINING OF LT SHOULDER PAIN AND IS BURPING A LOT AND PATIENT STATES," I FEEL LIKE I A LOT OF AIR INSIDE AND I NEED TO LET OUT." I CONTINUE TO ENCOURAGE PATIENT TO AMBULATE.
--- NOTE | 2016-07-29 22:03 | NUR ---
I GAVE THE PATIENT MILK OF MAGNESIA ORDERED AND I EXPLAINED TO THE PATIENT THE PURPOSE OF THE MEDICATION THEY BOTH VERBALIZE UNDERSTANDING.
--- NOTE | 2016-07-30 00:30 | NUR ---
PATIENT READY TO GO TO SLEEP PATIENT REMOVED THE ABDOMINAL BINDER TO LET HER STOMACH REST AND I WAS ABLE TO CHECK HER INCISION.EDUCATION GIVEN TO THE PATIENT NOT TO TOUCH THE INCISION OF PULL ON THE SKIN OR TOUCH THE RICHARDSON.PATIENT VERBALIZES UNDERSTANDING BUT NEEDS REENFORCEMENT.
--- NOTE | 2016-07-30 02:30 | NUR ---
PATIENT SLEEPING PATIENT DOESN'T BE WOKEN UP UNLESS SHE CALLS OR HER .IVF INFUSING WELL WILL CONTINUE TO MONITOR.
[2016-07-30] MEDS: MORPHINE SULFATE 4 MG/ML SYR IVP PRN ×7 (03:16→23:24)
[2016-07-30] MEDS: metroNIDAZOLE 500 MG/NS PREMIX 100 ML IV SCH ×3 (04:16→20:10)
--- NOTE | 2016-07-30 04:16 | NUR ---
PATIENT RECEIVED HER ANTIBIOTIC BY CHRISTOPHER HENRY.
[2016-07-30] MEDS: METOCLOPRAMIDE 10 MG TAB PO SCH ×3 (06:02→16:26)
--- NOTE | 2016-07-30 06:18 | NUR ---
PATIENT WAS ASKING FOR NORCO FOR HER PAIN THEN WHEN SHE IS GOING TO TAKE IT PT STATES,"I CHANGED MY MIND I WANT MORPHINE INSTEAD MY PAIN IS NOW SEVERE I CAN GET IT ITS BEEN THREE HOURS ALREADY." PATIENT IS SMILING AND SITTING DOWN IN THE CHAIR. I EXPLAINED TO THE PATIENT THAT WE NEED TO MONITOR HER ESPECIALLY BECAUSE SHE IS GETTING MORPHINE AND TO REPORT ANY SOB OR ANY SYMPTOMS IF SHE HAS ANY RIGHT AWAY.PATIENT AND VERBALIZES UNDERSTANDING.
[2016-07-30] MEDS: HYDROcodone/APAP 10/325 MG 1 TAB TAB PO PRN ×3 (06:19→18:13)
[2016-07-30 07:30] LABS: BASOPHILS # (AUTO) 0.1 K/uL (0.00-0.22); BASOPHILS % (AUTO) 0.8 % (0.0-2.0); EOSINOPHILS # (AUTO) 0.2 K/uL (0-0.4); EOSINOPHILS % (AUTO) 1.2 % (0.0-4.0); HEMATOCRIT 36.4 % (36-48); HEMOGLOBIN 12.1 g/dL (12.0-16.0); LYMPHOCYTES # (AUTO) 2.4 K/uL (2.5-16.5); LYMPHOCYTES % (AUTO) 15.9 % (20.5-51.1); MEAN CORPUSCULAR HEMOGLOBIN 30 pg (27-31); MEAN CORPUSCULAR HGB CONC 33 g/dL (33-37); MEAN CORPUSCULAR VOLUME 89 fL (80-94); MONOCYTES # (AUTO) 1.9 K/uL (0.8-1.0); MONOCYTES % (AUTO) 12.8 % (1.7-9.3); NEUTROPHILS # (AUTO) 10.3 K/uL (1.8-7.7); NEUTROPHILS % (AUTO) 69.3 % (42.2-75.2); PLATELET COUNT (AUTO) 306 K/uL (140-450); RED BLOOD CELL COUNT(AUTO) 4.08 MIL/uL (4.20-5.40); RED CELL DISTRIBUTION WIDTH 13.5 % (11.6-13.7); WHITE BLOOD COUNT (AUTO) 14.9 K/uL (4.8-10.8)
[2016-07-30 07:33] LABS: ANION GAP 14.4 (8-16); CARBON DIOXIDE 26.3 mmol/L (21-32); CREATININE 0.5 mg/dL (0.6-1.3); POTASSIUM 3.7 mmol/L (3.5-5.1)
--- NOTE | 2016-07-30 07:39 | NUR ---
PATIENT ENDORSED TO CHRISTOPHER CEDENO AT BEDSIDE PATIENT STABLE SHE WILL RESUME CARE OF THE PATIENT.
--- NOTE | 2016-07-30 07:40 | NUR ---
RECEIVED PT FROM FINANCE DIRECTOR NURSE AT BEDSIDE. PT IS A&OX4. PT HAS IV ON R WRIST 20 G RUNNING NS@50. AT BEDSIDE. PT C/O PAIN, WILL MEDICATE WHEN PAIN MED IS DUE. PT HAS RICHARDSON ON ABDOMEN S/P EXPLORATORY LAP PROCEDURE. NO DRAINAGE NOTED. CALL LIGHT WITHIN REACH. WILL CONTINUE TO MONITOR.
[2016-07-30 08:00] VITALS: BP 129/75
[2016-07-30] MEDS: FERROUS SULFATE 325 MG TABEC PO SCH ×2 (08:54→16:25)
[2016-07-30] MEDS: SODIUM PHOS / POTASSIUM PHOS 1 PKT PDR PO SCH ×3 (08:54→16:26)
--- NOTE | 2016-07-30 09:10 | NUR ---
PT TOOK MORNING MEDS. TOLERATED WELL. PT REPORTED PASSING GAS WHILE WALKING EARLIER IN THE MORNING. CALL LIGHT WITHIN REACH. WILL CONTINUE TO MONITOR.
[2016-07-30] MEDS: LEVOFLOXACIN 750 MG/D5W PREMIX 150 ML IV SCH (09:13)
[2016-07-30] MEDS: FERRIC GLUCONATE 125 MG in NACL 0.9% 100 ML IV SCH (09:14)
[2016-07-30] MEDS: ASCORBIC ACID 500 MG TAB PO SCH (09:15)
[2016-07-30] MEDS: SIMETHICONE 80 MG TAB.CHEW PO SCH ×3 (09:15→16:25)
--- NOTE | 2016-07-30 10:00 | NUR ---
ADMINISTERED PAIN MED. TOLERATED WELL. MOTHER AT BEDSIDE. CALL LIGHT WITHIN REACH. WILL CONTINUE TO MONITOR.
[2016-07-30] MEDS: ACETAMINOPHEN 325 MG TAB PO PRN (12:30)
--- NOTE | 2016-07-30 12:37 | NUR ---
SPOKE TO DR. JAUREGUI REGARDING PT'S FEVER OF 100.8, INCREASED PAIN, REDNESS AND GAS. ORDERED U/S ABDOMEN. WILL CARRY OUT ORDER.
--- NOTE | 2016-07-30 13:59 | NUR ---
PT STATED SHE IS FEELING BETTER. KEPT NPO FOR U/S ABDOMEN. AND MOTHER AT BEDSIDE. CALL LIGHT WITHIN REACH. WILL CONTINUE TO MONITOR.
--- NOTE | 2016-07-30 15:30 | NUR ---
PT IS RESTING IN BED WITH AT BEDSIDE. NO COMPLAINTS AT THIS TIME. CALL LIGHT WITHIN REACH. WILL CONTINUE TO MONITOR.
[2016-07-30 16:00] VITALS: BP 108/75
[2016-07-30] MEDS: NACL 0.9% 1,000 ML IV SCH (16:48)
--- NOTE | 2016-07-30 17:30 | NUR ---
PT TOLERATED AFTERNOON MEDS WELL. CALL LIGHT WITHIN REACH. WILL CONTINUE TO MONITOR.
--- NOTE | 2016-07-30 19:13 | NUR ---
DR. JAUREGUI AWARE OF U/S RESULT. ORDERED DULCOLAX ONE TIME NOW AND MAY ORDER ONE MORE IN THE MORNING TOMORROW. WILL CARRY OUT ORDER.
[2016-07-30] MEDS ORDERED: BISACODYL 10 MG SUPP RC SCH (19:15)
--- NOTE | 2016-07-30 19:20 | NUR ---
ENDORSED CARE OF PT TO INSPECTOR PENETRANT NURSE. PT IN STABLE CONDITION.
--- NOTE | 2016-07-30 19:30 | NUR ---
RECEIVED REPORT FROM AM NURSE. PT AT BEDSIDE. PT AOX4, ABLE TO VERBALIZE NEEDS. PT C/O ABD PAIN. SEE PAIN ASSESSMENT. WILL ADMINISTER PAIN MED ORDERED. PT DENIES N/V, DENIES CHEST PAIN, SOB OR S/S OF ACUTE DISTRESS. MIDLINE ABDOMINAL INCISION NOTED WITH RICHARDSON, MINIMAL DRAINAGE NOTED. ABD PAD DRESSING CHANGED, ABD BINDER IN PLACE. PT REPORTS NOT HAVING BM SINCE 07/24/16 AND FEELING GAS TRAPPED. IV ACCESS ASYMPTOMATIC, PATENT AND INTACT. IVF INFUSING WELL. DISCUSSED AND REVIEWED PLAN OF CARE WITH PT. SAFETY MEASURES ENSURED. CALL LIGHT WITHIN REACH. WILL CONTINUE TO MONITOR.
[2016-07-30 20:00] VITALS: BP 130/79
--- NOTE | 2016-07-30 20:30 | NUR ---
PT AND FAMILY AT BEDSIDE. PT VERBALIZED THAT IT IS OK FOR FAMILY TO BE AT BEDSIDE. PT C/O PAIN. SEE PAIN ASSESSMENT. ADMINISTERED PAIN MEDICATION ORDERED. ADMINISTERED DUE MEDICATIONS WITH EDUCATION. IVF INFUSING WELL. ADMINISTERED DULCOLAX SUPPOSITORY ORDERED WITH EDUCATION. PT INSTRUCTED TO LAY ON LEFT SIDE AND HOLD THE SUPPOSITORY IN THE MEDICATION TAKES EFFECT. PT MOVES SLOWLY TO GET INTO POSITION BUT IS TOLERATING WELL, WILL CONTINUE TO MONITOR. BEDPAN AT BEDSIDE. PT INSTRUCTED TO USE CALL LIGHT WHEN NEEDING ASSISTANCE. SAFETY MEASURES ENSURED. CALL LIGHT WITHIN REACH. WILL CONTINUE TO MONITOR.
--- NOTE | 2016-07-30 21:50 | NUR ---
PT C/O PAIN AT IV SITE. RIGHT WRIST IV ACCESS FOUND INFILTRATED. IV CATH REMOVED, CANNULA INTACT. PT TOLERATED WELL. WILL START NEW IV ACCESS.
--- NOTE | 2016-07-30 22:30 | NUR ---
NEW IV ACCESS 22G STARTED ON RIGHT FOREARM, PT TOLERATED WELL. IVF INFUSING WELL. PT ASSISTED TO RESTROOM BY , SLOW BUT STEADY GAIT NOTED WITH STANDBY ASSIST.
--- NOTE | 2016-07-30 22:59 | NUR ---
PT REPORTS HAVING LARGE LIQUID STOOL WITH GAS, PT STATED SLIGHT RELIEF OF ABD PAIN AND DISCOMFORT.
--- NOTE | 2016-07-30 23:54 | NUR ---
CONDITION STABLE. ALL NEEDS MET. IVF INFUSING WELL. SAFETY MEASURES ENSURED. CALL LIGHT WITHIN REACH. WILL CONTINUE TO MONITOR.
[2016-07-31] VITALS: BP 117/70
[2016-07-31] MEDS: HYDROcodone/APAP 10/325 MG 1 TAB TAB PO PRN ×4 (00:55→20:56)
--- NOTE | 2016-07-31 00:55 | NUR ---
PT C/O BREAKTHROUGH ABD PAIN. SEE PAIN ASSESSMENT. ADMINISTERED NORCO. WILL CONTINUE TO REASSESS PAIN.
[2016-07-31] MEDS: MORPHINE SULFATE 4 MG/ML SYR IVP PRN ×4 (02:49→19:01)
--- NOTE | 2016-07-31 02:49 | NUR ---
PT SITTING AT CHAIR NEXT TO BED. PT C/O PAIN. SEE PAIN ASSESSMENT. ADMINISTERED PAIN MED ORDERED. ALL NEEDS MET. SAFETY MEASURES ENSURED. CALL LIGHT WITHIN REACH. WILL CONTINUE TO MONITOR.
[2016-07-31] MEDS: metroNIDAZOLE 500 MG/NS PREMIX 100 ML IV SCH ×3 (04:03→20:32)
--- NOTE | 2016-07-31 04:59 | NUR ---
PT REQUESTING NORCO FOR ABD PAIN. EXPLAINED TO PT AND PT'S THAT THE PT'S CONSTIPATION CAN BE CAUSED BY PAIN MEDICATIONS. PT VERBALIZED UNDERSTANDING. PT STATED SHE IS ABLE TO TOLERATE THE PAIN UNTIL HER NEXT PRN MORPHINE IS DUE.
[2016-07-31 06:33] LABS: BASOPHILS # (AUTO) 0.2 K/uL (0.00-0.22); BASOPHILS % (AUTO) 1.3 % (0.0-2.0); EOSINOPHILS # (AUTO) 0.2 K/uL (0-0.4); EOSINOPHILS % (AUTO) 1.5 % (0.0-4.0); HEMATOCRIT 33.3 % (36-48); HEMOGLOBIN 11.2 g/dL (12.0-16.0); LYMPHOCYTES # (AUTO) 2.2 K/uL (2.5-16.5); MEAN CORPUSCULAR HEMOGLOBIN 30 pg (27-31); MEAN CORPUSCULAR HGB CONC 34 g/dL (33-37); MEAN CORPUSCULAR VOLUME 89 fL (80-94); MONOCYTES # (AUTO) 1.7 K/uL (0.8-1.0); MONOCYTES % (AUTO) 12.5 % (1.7-9.3); NEUTROPHILS # (AUTO) 9.4 K/uL (1.8-7.7); NEUTROPHILS % (AUTO) 68.7 % (42.2-75.2); PLATELET COUNT (AUTO) 302 K/uL (140-450); RED BLOOD CELL COUNT(AUTO) 3.73 MIL/uL (4.20-5.40); RED CELL DISTRIBUTION WIDTH 13.5 % (11.6-13.7); WHITE BLOOD COUNT (AUTO) 13.7 K/uL (4.8-10.8)
[2016-07-31] MEDS: METOCLOPRAMIDE 10 MG TAB PO SCH ×3 (06:34→16:30)
[2016-07-31 07:01] LABS: ANION GAP 13.1 (8-16); CALCIUM 8.1 mg/dL (8.5-10.1); CARBON DIOXIDE 26.6 mmol/L (21-32); CREATININE 0.5 mg/dL (0.6-1.3); POTASSIUM 3.7 mmol/L (3.5-5.1)
--- NOTE | 2016-07-31 07:19 | NUR ---
CONDITION STABLE. ENDORSED PLAN OF CARE TO AM NURSE.
--- NOTE | 2016-07-31 07:20 | NUR ---
RECEIVED REPORT OF PT FROM TRAVEL COUNSELOR [employer] NURSE AT BEDSIDE. INTRODUCED MYSELF AND UPDATED THE BOARD. PT C/O PAIN BUT TOLERABLE AT THIS TIME. WILL CONTINUE TO MONITOR. PT HAS IV ON R F/A 22 G RUNNING NS@25ML/HR. PT IS SITTING IN CHAIR, ABD BINDER IN PLACE. CALL LIGHT WITHIN REACH. WILL CONTINUE TO MONITOR.
[2016-07-31 08:00] VITALS: BP 124/80
[2016-07-31] MEDS: SODIUM PHOS / POTASSIUM PHOS 1 PKT PDR PO SCH ×3 (08:32→16:46)
[2016-07-31] MEDS: FERROUS SULFATE 325 MG TABEC PO SCH ×2 (08:32→16:46)
[2016-07-31] MEDS: SIMETHICONE 80 MG TAB.CHEW PO SCH ×3 (08:33→16:46)
[2016-07-31] MEDS: ASCORBIC ACID 500 MG TAB PO SCH (08:33)
--- NOTE | 2016-07-31 09:00 | NUR ---
OBTAINED CONSENT FOR CT. PT VERBALIZED UNDERSTANDING.
--- NOTE | 2016-07-31 09:10 | NUR ---
INSERTED A NEW IV ON L AC 20G FOR CT WITH CONTRAST. PT TOLERATED WELL. CALL LIGHT WITHIN REACH. WILL CONTINUE TO MONITOR.
[2016-07-31] MEDS: FERRIC GLUCONATE 125 MG in NACL 0.9% 100 ML IV SCH (09:34)
--- NOTE | 2016-07-31 09:41 | NUR ---
CM NOTE CONCURRENT REVIEW FAXED TO SUMAN MEEKS [phone] REF# [id number]
--- NOTE | 2016-07-31 11:00 | NUR ---
PT BACK IN ROOM. IN STABLE CONDITION. CALL LIGHT WITHIN REACH. WILL CONTINUE TO MONITOR.
[2016-07-31] MEDS: NACL 0.9% 1,000 ML IV SCH (13:00)
[2016-07-31] MEDS ORDERED: MORPHINE SULFATE 2 MG/ML SYR IVP SCH (14:30)
--- NOTE | 2016-07-31 14:30 | NUR ---
PT WAS CRYING OUT LOUD DUE TO PAIN. DR IS TO PUT IN NEW ORDER FOR PAIN MED.
--- NOTE | 2016-07-31 14:58 | NUR ---
MORPHINE 2MG ADMINISTERED. PT TOLERATED WELL. DR WILL EXAMINE PT WHEN SHE IS READY.
[2016-07-31] MEDS ORDERED: LEVOFLOXACIN 750 MG/D5W PREMIX 150 ML IV SCH (15:00)
[2016-07-31 16:00] VITALS: BP 127/78
--- NOTE | 2016-07-31 16:00 | NUR ---
VS WNL. PT IS RESTING IN CHAIR. AT BEDSIDE. CALL LIGHT WITHIN REACH. WILL CONTINUE TO MONITOR.
--- NOTE | 2016-07-31 17:40 | NUR ---
ADMINISTERED MOTRIN FOR PAIN. PT TOLERATED WELL. EXPLAINED TO PT THE NEED TO SLOWLY WEAN IV PAIN MED. PT VERBALIZED UNDERSTANDING.
[2016-07-31] MEDS: IBUPROFEN 800 MG TAB PO PRN (17:50)
--- NOTE | 2016-07-31 19:32 | NUR ---
ENDORSED CARE OF PT TO JOB SUPERINTENDENT NURSE AT BEDSIDE. PT IN STABLE CONDITION.
--- NOTE | 2016-07-31 19:34 | NUR ---
RECEIVED REPORT FROM AM NURSE. PT AND AUNT AT BEDSIDE. PT SITTING ON CHAIR NEXT TO BED, AOX4, ABLE TO VERBALIZE NEEDS. PT DENIES ABD PAIN AT THIS TIME. PT WAS JUST GIVEN PAIN MEDICATION. PT DENIES N/V, DENIES CHEST PAIN, SOB OR S/S OF ACUTE DISTRESS. MIDLINE ABDOMINAL INCISION NOTED WITH RICHARDSON, MINIMAL DRAINAGE NOTED. ABD PAD DRESSING CHANGED, ABD BINDER IN PLACE. PT REPORTS LAST BM ON 07/31/16 EVENING, LARGE LIQUID STOOL. IV ACCESS ASYMPTOMATIC, PATENT AND INTACT. IVF INFUSING WELL. DISCUSSED AND REVIEWED PLAN OF CARE WITH PT. PT VERBALIZED UNDERSTANDING. SAFETY MEASURES ENSURED. CALL LIGHT WITHIN REACH. WILL CONTINUE TO MONITOR.
[2016-07-31 20:00] VITALS: BP 124/78
--- NOTE | 2016-07-31 20:37 | NUR ---
ADMINISTERED DUE IV FLAGYL WITH EDUCATION. PT VERBALIZED UNDERSTANDING. IVPB INFUSING WELL. PT FAMILY AT BEDSIDE. PT SITTING AT BEDSIDE. CONDITION STABLE.
[2016-07-31] MEDS: BISACODYL 10 MG SUPP RC PRN (20:56)
--- NOTE | 2016-07-31 21:21 | NUR ---
PT C/O PAIN. SEE PAIN ASSESSMENT. ADMINISTERED NORCO. ASSISTED PT TO LEFT SIDE, PT MOVING SLOWLY BUT ABLE TO TOLERATE MOVEMENT WITH STANDBY ASSIST. PT C/O CONSTIPATION AND GAS, ADMINISTERED DULCOLAX ORDERED. PT INSTRUCTED TO HOLD MEDICATION IN FOR THE MEDICATION TO WORK.
--- NOTE | 2016-07-31 22:00 | NUR ---
PT EVALUATED BY DR FRYE, DISCUSSED PT CONDITION AND PLAN OFCARE. NEW ORDERS ACKNOWLEDGED AND WILL CARRY OUT.
[2016-07-31] MEDS ORDERED: PIPERACILLIN/TAZOBACTAM 3.375 GM VIAL IV ONE (23:31)
[2016-07-31] MEDS: PIPER/TAZO 3.375GM/D5W PREMIX 50 ML IV SCH (23:32)
[2016-08-01] VITALS: BP 123/70
[2016-08-01] MEDS: MORPHINE SULFATE 4 MG/ML SYR IVP PRN ×2 (00:08→03:56)
--- NOTE | 2016-08-01 00:15 | NUR ---
PT C/O PAIN. SEE PAIN ASSESSMENT. ADMINISTERED IVP MORPHINE 3MG ORDERED. IVPB ZOSYN INFUSING WELL. ABD MIDLINE INCISION CLEANSED WITH NS AND GAUZE, ABD PAD CHANGED, MINIMAL DRAINAGE NOTED. PT REPORTS TENDERNESS BUT TOLERATED WELL. PT SITTING AT CHAIR AT BEDSIDE. SAFETY MEASURES ENSURED. CALL LIGHT WITHIN REACH. WILL CONTINUE TO MONITOR.
[2016-08-01 01:19] LABS: APPEARANCE,URINE CLEAR (CLEAR); BILIRUBIN,URINE 2+ (NEGATIVE); BLOOD, URINE TRACE-I (NEGATIVE); COLOR,URINE YELLOW (YELLOW); LEUKOCYTE ESTERASE ,URINE NEGATIVE (NEGATIVE); NITRITE, URINE NEGATIVE (NEGATIVE); PROTEIN,URINE NEGATIVE (NEGATIVE); UGLUCOSE NEGATIVE (NEGATIVE); UROBILINOGEN,URINE 0.2 EU/dL (0.2 - 1)
[2016-08-01] MEDS: IBUPROFEN 800 MG TAB PO PRN ×4 (02:46→18:55)
--- NOTE | 2016-08-01 02:46 | NUR ---
PT REPORTS NO BM OR GAS STILL AFTER DULCOLAX. PT C/O PAIN. SEE PAIN ASSESSMENT. ADMINISTERED IBUPROFEN PER PT REQUEST WITH MILK DUE PT ON FULL LIQUID DIET. SAFETY MEASURES ENSURED. CALL LIGHT WITHIN REACH. WILL CONTINUE TO MONITOR.
[2016-08-01 03:45] LABS: BACTERIA,URINE FEW /HPF (None Seen); ICTOTEST NEGATIVE (NEGATIVE); RBC,URINE 0-5 (RARE) /HPF (0-5); SQUAMOUS EPITHELIAL CELL,UR 0-3 (FEW) /LPF (0-3 (FEW)); WBC,URINE 0-5 (RARE) /HPF (0-5)
--- NOTE | 2016-08-01 04:01 | NUR ---
PT REPORTS HAVING SMALL LIQUID STOOL. PT RESTING IN BED. PT C/O BREAKTHROUGH ABD PAIN. SEE PAIN ASSESSMENT. ADMINISTERED MORPHINE ORDERED. SAFETY MEASURES ENSURED. CALL LIGHT WITHIN REACH. WILL CONTINUE TO MONITOR.
[2016-08-01] MEDS ORDERED: PIPERACILLIN/TAZOBACTAM 3.375 GM VIAL IV ONE (05:02)
[2016-08-01] MEDS: PIPER/TAZO 3.375GM/D5W PREMIX 50 ML IV SCH ×3 (05:04→17:19)
[2016-08-01] MEDS: HYDROcodone/APAP 10/325 MG 1 TAB TAB PO PRN (05:36)
--- NOTE | 2016-08-01 05:36 | NUR ---
PT C/O PERSISTENT ABD PAIN. SEE PAIN ASSESSMENT. PT REQUESTED NORCO. ADMINISTERED NORCO WITH EDUCATION FOR PERSISTENT BREAKTHROUGH PAIN. PT VERBALIZED UNDERSTANDING. PT EDUCATED TO TRY TO WEAN OFF IV MORPHINE. PT VERBALIZED UNDERSTANDING. SAFETY MEASURES ENSURED. CALL LIGHT WITHIN REACH. WILL CONTINUE TO MONITOR.
[2016-08-01 06:32] LABS: BASOPHILS # (AUTO) 0.1 K/uL (0.00-0.22); BASOPHILS % (AUTO) 0.9 % (0.0-2.0); EOSINOPHILS # (AUTO) 0.2 K/uL (0-0.4); EOSINOPHILS % (AUTO) 1.9 % (0.0-4.0); HEMATOCRIT 35.2 % (36-48); HEMOGLOBIN 11.6 g/dL (12.0-16.0); LYMPHOCYTES # (AUTO) 2.7 K/uL (2.5-16.5); LYMPHOCYTES % (AUTO) 21.6 % (20.5-51.1); MEAN CORPUSCULAR HEMOGLOBIN 30 pg (27-31); MEAN CORPUSCULAR HGB CONC 33 g/dL (33-37); MEAN CORPUSCULAR VOLUME 89 fL (80-94); MONOCYTES # (AUTO) 1.3 K/uL (0.8-1.0); MONOCYTES % (AUTO) 10.6 % (1.7-9.3); NEUTROPHILS # (AUTO) 8.2 K/uL (1.8-7.7); PLATELET COUNT (AUTO) 320 K/uL (140-450); RED BLOOD CELL COUNT(AUTO) 3.95 MIL/uL (4.20-5.40); RED CELL DISTRIBUTION WIDTH 13.5 % (11.6-13.7); WHITE BLOOD COUNT (AUTO) 12.5 K/uL (4.8-10.8)
[2016-08-01] MEDS: METOCLOPRAMIDE 10 MG TAB PO SCH ×3 (06:33→17:18)
[2016-08-01 07:15] LABS: ANION GAP 11.4 (8-16); CALCIUM 8.3 mg/dL (8.5-10.1); CARBON DIOXIDE 30.3 mmol/L (21-32); CREATININE 0.5 mg/dL (0.6-1.3); POTASSIUM 3.7 mmol/L (3.5-5.1)
--- NOTE | 2016-08-01 07:23 | NUR ---
CONDITION STABLE. ENDORSED PLAN OF CARE TO AM NURSE.
--- NOTE | 2016-08-01 07:26 | NUR ---
RECEIVED PT IN BED. AWAKE. ALERT ORIENTEDX4. NO SOB NOTED. DENIES ANY PAIN OR DISCOMFORT AT THIS TIME. ABDOMINAL DRESSING DRY AND INTACT. PT AMBULATORY WITH ASSIST. POSITIVE BOWEL SOUNDS NOTED ON FOUR QUADRANTS. SAFETY PRECAUTION IN PLACE. CALL LIGHT WITHIN REACH.
[2016-08-01 08:00] VITALS: BP 115/65
[2016-08-01] MEDS: SIMETHICONE 80 MG TAB.CHEW PO SCH ×3 (08:50→17:18)
[2016-08-01] MEDS: FERROUS SULFATE 325 MG TABEC PO SCH ×2 (08:50→17:18)
[2016-08-01] MEDS: ASCORBIC ACID 500 MG TAB PO SCH (08:51)
[2016-08-01] MEDS: SODIUM PHOS / POTASSIUM PHOS 1 PKT PDR PO SCH ×3 (08:52→17:19)
[2016-08-01] MEDS: FERRIC GLUCONATE 125 MG in NACL 0.9% 100 ML IV SCH (09:20)
--- NOTE | 2016-08-01 10:49 | NUR ---
PT COMPLAINED THAT THE MOTRIN JUST HELPED HER A LITTLE BIT WITH HER PAIN AND WOUND WANT TO BE BACK TO MORPHINE IVP. DR. LAL MADE AWARE HE SAID THAT HE WILL PUT PT ON PERCOCET FOR PAIN.
[2016-08-01] MEDS ORDERED: oxyCODONE/APAP 5/325 MG 1 TAB TAB PO PRN (10:50)
--- NOTE | 2016-08-01 12:08 | NUR ---
CM NOTE CONCURRENT REVIEW FAXED TO SUMAN MEEKS [phone] REF# [id number]
--- NOTE | 2016-08-01 14:00 | NUR ---
PT FAMILY AT BEDSIDE.
[2016-08-01 16:00] VITALS: BP 119/70
--- NOTE | 2016-08-01 16:04 | NUR ---
08/01/16 RD FOLLOW-UP ASSESSMENT COMPLETED PLEASE REFER TO NUTRITION ASSESSMENT UNDER CARE ACTIVITY FOR ESTIMATED NUTRITIONAL NEEDS. 1. CONTINUE FULL LIQUID DIET, ADVANCE TOLERATED TO SOFT/BLAND DIET 2. RD TO FOLLOW-UP 2-3 DAYS; HIGH RISK TAMARA NICOLAS, NIKKY
[2016-08-01] MEDS: NACL 0.9% 1,000 ML IV SCH (16:48)
[2016-08-01] MEDS: oxyCODONE/APAP 5/325 MG 1 TAB TAB PO PRN ×2 (17:18→21:22)
--- NOTE | 2016-08-01 19:34 | NUR ---
PT KEPT CLEAN, DRY AND COMFORTABLE, NEEDS ATTENDED. PT ENDORSED TO NEXT SHIFT FOR CONTINUITY OF CARE. PT ON STABLE CONDITION.
--- NOTE | 2016-08-01 19:35 | NUR ---
RECD. SITTING ON CHAIR, AWAKE, A/OX4. RESPIRATION EVEN AND UNLABORED. IV OF NS AT 25 ML/HR INFUSING, RIGHT FOREARM G 22. INCISION IN THE ABDOMEN COVERED WITH ABDOMINAL PAD AND BINDER, DRY AND INTACT. TOLERATING FULL LIQUID DIET. PLAN OF CARE FOR THE SHIFT DISCUSSED. VERBALIZED UNDERSTANDING. PAIN IN THE ABDOMEN 02/14, STATED TOLERABLE. FAMILY AT BEDSIDE.
--- NOTE | 2016-08-01 20:00 | NUR ---
Patient's Plan of Care was discussed and reviewed with BUFFERER: NAY PONCE
--- NOTE | 2016-08-01 20:40 | NUR ---
AMBULATED IN THE HALLWAY FOR 10 MINUTES, TOLERATED WELL.
[2016-08-01] MEDS: BISACODYL 10 MG SUPP RC PRN (21:22)
--- NOTE | 2016-08-01 21:22 | NUR ---
FEELS THAT HE WANTS TO HAVE BM BUT UNABLE TO HAVE ONE, STATED HAD BM LAST NIGHT AFTER DULCOLAX SUPPOSITORY BUT ONLY SMALL ONE. OFFERED PRUNE JUICE BUT REFUSED, DULCOLAX SUPPOSITORY GIVEN.
--- NOTE | 2016-08-01 22:30 | NUR ---
CLAIMED NO BM COMES OUT. BUT ABLE TO PASS GAS. AGREED TO DRINK TWO WARM PRUNE JUICE.
[2016-08-02] VITALS: BP 133/55
[2016-08-02] MEDS: PIPER/TAZO 3.375GM/D5W PREMIX 50 ML IV SCH ×3 (00:28→11:39)
--- NOTE | 2016-08-02 00:30 | NUR ---
SLEEPING COMFORTABLY IN BED.
--- NOTE | 2016-08-02 01:00 | NUR ---
HAD ONE MEDIUM BM. FEELS BETTER.
[2016-08-02] MEDS: oxyCODONE/APAP 5/325 MG 1 TAB TAB PO PRN ×3 (02:26→12:16)
[2016-08-02] MEDS: IBUPROFEN 800 MG TAB PO PRN ×2 (04:43→10:22)
--- NOTE | 2016-08-02 04:43 | NUR ---
SITTING ON CHAIR, MEDICATED WITH MOTRIN ORDERED.
--- NOTE | 2016-08-02 05:45 | NUR ---
SLEEPING COMFORTABLY IN BED.
[2016-08-02 06:14] LABS: BASOPHILS # (AUTO) 0.2 K/uL (0.00-0.22); BASOPHILS % (AUTO) 1.4 % (0.0-2.0); EOSINOPHILS # (AUTO) 0.3 K/uL (0-0.4); EOSINOPHILS % (AUTO) 2.4 % (0.0-4.0); HEMATOCRIT 36.8 % (36-48); HEMOGLOBIN 12.2 g/dL (12.0-16.0); LYMPHOCYTES # (AUTO) 2.1 K/uL (2.5-16.5); LYMPHOCYTES % (AUTO) 16.7 % (20.5-51.1); MEAN CORPUSCULAR HEMOGLOBIN 30 pg (27-31); MEAN CORPUSCULAR HGB CONC 33 g/dL (33-37); MEAN CORPUSCULAR VOLUME 90 fL (80-94); MONOCYTES # (AUTO) 0.9 K/uL (0.8-1.0); NEUTROPHILS # (AUTO) 8.8 K/uL (1.8-7.7); NEUTROPHILS % (AUTO) 72.5 % (42.2-75.2); PLATELET COUNT (AUTO) 403 K/uL (140-450); RED BLOOD CELL COUNT(AUTO) 4.11 MIL/uL (4.20-5.40); RED CELL DISTRIBUTION WIDTH 13.9 % (11.6-13.7); WHITE BLOOD COUNT (AUTO) 12.3 K/uL (4.8-10.8)
[2016-08-02 06:17] LABS: ANION GAP 14.3 (8-16); CALCIUM 8.4 mg/dL (8.5-10.1); CARBON DIOXIDE 25.8 mmol/L (21-32); CREATININE 0.5 mg/dL (0.6-1.3); POTASSIUM 4.1 mmol/L (3.5-5.1)
[2016-08-02 06:30] LABS: CHLAMYDIA TRACHOMATIS AMP DNA Negative (Negative)
[2016-08-02] MEDS: METOCLOPRAMIDE 10 MG TAB PO SCH ×2 (06:41→11:38)
--- NOTE | 2016-08-02 07:00 | NUR ---
CONDITION REMAIN STABLE. WILL ENDORSE TO AM NURSE FOR CONTINUITY OF CARE.
--- NOTE | 2016-08-02 07:22 | NUR ---
RECEIVED PT IN BED. ASLEEP. AROUSABLE TO VOICE. ALERT ORIENTED X4. NO SOB NOTED. DENIES ANY PAIN OR DISCOMFORT AT THIS TIME. POSITIVE BOWEL SOUNDS NOTED ON FOUR QUADRANTS NOTED. ABDOMINAL BINDER AND DRESSING DRY AND INTACT. PT AMBULATORY WITH ASSIST. SAFETY PRECAUTION IN PLACE. CALL LIGHT WITHIN REACH.
[2016-08-02 08:00] VITALS: BP 132/67
[2016-08-02] MEDS: ASCORBIC ACID 500 MG TAB PO SCH (08:40)
[2016-08-02] MEDS: SIMETHICONE 80 MG TAB.CHEW PO SCH ×2 (08:40→12:11)
[2016-08-02] MEDS: FERROUS SULFATE 325 MG TABEC PO SCH (08:40)
[2016-08-02] MEDS: SODIUM PHOS / POTASSIUM PHOS 1 PKT PDR PO SCH ×2 (08:41→11:39)
--- NOTE | 2016-08-02 08:51 | NUR ---
CM NOTE CONCURRENT REVIEW FAXED TO SUMAN MEEKS [phone] REF# [id number]
[2016-08-02] MEDS ORDERED: [UNRECOGNIZED DRUG - CODE] PO (08:53)
[2016-08-02] MEDS ORDERED: DOCU-67 PO ×2 (08:53→12:25)
[2016-08-02] MEDS ORDERED: ASCO-166 PO ×2 (08:53→12:23)
[2016-08-02] MEDS ORDERED: LACT10CA PO (08:53)
[2016-08-02] MEDS ORDERED: ACET-9494 PO (08:53)
[2016-08-02] MEDS ORDERED: SIME80CT27 PO (08:53)
[2016-08-02] MEDS ORDERED: FERR-18 PO (08:53)
[2016-08-02] MEDS: NACL 0.9% 1,000 ML IV SCH (11:39)
[2016-08-02] MEDS ORDERED: IBUP800T99 PO (12:15)
--- NOTE | 2016-08-02 13:30 | NUR ---
DR. CASTILLO CAME TO SEE PT. AND GAVE DISCHARGE INSTRUCTIONS AND TEACHINGS TO PT. FAMILY AT BEDSIDE. PT VERBALIZED UNDERSTANDING. PHOTO WAS TAKEN FOR POST SURGICAL WOUND. GOOD SKIN CARE PROVIDED. DRESSING CHANGED.
[2016-08-02 13:45] VITALS: BP 111/62
--- NOTE | 2016-08-02 14:20 | NUR ---
PT SIGNED DISCHARGE PAPERS. HILARY WITH PT. VERBALIZED UNDERSTANDING REGARDING FOLLOW UP APPOINTMENT WITH PCP. IV CANNULA REMOVED AND INTACT. NAME ARMBAND REMOVED. NO SOB NOTED. PAIN SUBSIDING 3/10 PER PT REPORT.
--- NOTE | 2016-08-02 14:30 | NUR ---
PT WHEELED OUT TO THE HOSPITAL PARKING LOT. WITH HILARY TO THEIR PRIVATE OWNED CAR, ON STABLE CONDITION. NO SOB NOTED. PAIN AT THE MINIMAL LEVEL. PT VERBALIZED HER PAIN IS MORE TOLERABLE NOW THAN YESTERDAY.
== END 2016-08-02 14:30 | disposition home or self-care (01) | DRG 338 ==
LOC: MED 06:00 → MTU 09:50
PROVIDERS: ADMIT Family Medicine; ATTEND Family Medicine
PROC: 3E1M38Z Irrigation of Peritoneal Cavity using Irrigating Substance, Percutaneous Approach (ICD-10-PCS; 2016-07-25)
PROC: 0DTJ0ZZ Resection of Appendix, Open Approach (ICD-10-PCS; principal; 2016-07-25 17:30)
DX: K35.2 Acute appendicitis with generalized peritonitis (principal); N17.0 Acute kidney failure with tubular necrosis; E43 Unspecified severe protein-calorie malnutrition; N72 Inflammatory disease of cervix uteri; E83.39 Other disorders of phosphorus metabolism; E87.6 Hypokalemia; E11.9 Type 2 diabetes mellitus without complications; D72.829 Elevated white blood cell count, unspecified; E83.51 Hypocalcemia; R80.9 Proteinuria, unspecified; E83.42 Hypomagnesemia; D50.9 Iron deficiency anemia, unspecified; D63.8 Anemia in other chronic diseases classified elsewhere; Z83.3 Family history of diabetes mellitus; Z68.25 Body mass index [BMI] 25.0-25.9, adult
CPT/HCPCS: 36415; 71010; 74000; 76700; 76856; 80048; 80053; 80305; 81001; 81025; 82150; 82607; 82728; 82746; 83036; 83540; 83605; 83690; 83735; 84100; 84436; 84443; 84702; 85025; 85045; 85610; 85730; 87070; 87075; 87081; 87086; 87186; 87205; 87491; 93005; 96361; 96365; 96375; 96376; 99285; J0330; J0696; J1100; J1170; J1885; J1956; J2001; J2270; J2370; J2405; J2543; J2704; J2916; J3010; J3480; J3490; J7030; J7060; J8597; Q0092; Q9967